=== PATIENT | female | born 1980 | race Caucasian/White ===

== ENCOUNTER 2019-05-30 16:07 | Outpatient (CLI) | payer OTHER, SELFPAY ==
[2019-05-30 16:51] LABS: HCT 42.8 % (36.0-46.0); Mean Corp. HGB Concentration 32.7 g/dL (32.0-36.0); Mean Corpuscular Hemoglobin 28.6 pg (27.0-33.0); Mean Corpuscular Volume 87.5 fL (80-95); Mean Platelet Volume 9.9 fL (8.0-11.0); Platelet Count 307 x1000/uL (130-400); RBC 4.89 m/cumm (4.00-5.20); RBC Distribution Width 12.9 % (11.7-14.6); White Blood Cell Count 8.59 k/cumm (4.4-10.8)
[2019-05-30 18:51] LABS: Ferritin 110 ng/mL (8-388); TSH (W/Ref FT4) 2.38 uIU/mL (0.36-3.74)
[2019-06-02 11:16] LABS: FSH 55.6 mIU/ml; LH 23.1 mIU/ml; Prolactin 4.4 ng/ml
== END 2019-05-30 16:27 ==
PROVIDERS: PCP Family Medicine; Visit Provider Obstetrics & Gynecology
DX: N92.0 Excessive and frequent menstruation with regular cycle
CPT/HCPCS: 36415; 85027; 82728; 83001; 83002; 84146; 84443

== ENCOUNTER 2019-07-09 01:15 | Outpatient (CLI) | payer OTHER, SELFPAY ==
--- NOTE | 2019-07-09 09:07 | DI.US_ITS ---
EXAM: US PELVIS TRANSVAGINAL CLINICAL HISTORY: Menorrhagia,n92.0 TECHNIQUE: Ultrasound performed using standard protocol. Transabdominal and transvaginal exams wer e performed. COMPARISON: PELVIS TRANSVAG from 06/22/2017 FINDINGS: The transabdominal images are limited by an empty bladder. The uterus is retroverted and measures 9 x 5.4 x 6.2 cm. No fibroids are seen. The endometrial stripe measures 16 millimeters in thickness. No focal endometrial abnormality is seen. Small bilateral cysts versus follicles are seen on both ovaries. There are no suspicious masses or evidence of torsion. There is no free fluid or hydroneph rosis. IMPRESSION: Mildly thickened endometrium.
== END 2019-07-09 01:35 ==
PROVIDERS: PCP Family Medicine; Visit Provider Obstetrics & Gynecology
DX: N92.0 Excessive and frequent menstruation with regular cycle (principal); R93.89 Abnormal findings on diagnostic imaging of other specified body structures; N85.4 Malposition of uterus
CPT/HCPCS: 76830; 76856

== ENCOUNTER 2019-07-09 08:47 | Outpatient (CLI) | payer OTHER, SELFPAY ==
[2019-08-25 17:40] LABS: Result Summary NEGATIVE; Specimen WB Whole Blood
== END 2019-07-09 09:07 ==
PROVIDERS: PCP Family Medicine; Visit Provider Obstetrics & Gynecology
DX: N92.0 Excessive and frequent menstruation with regular cycle (principal); Z80.41 Family history of malignant neoplasm of ovary
CPT/HCPCS: 36415; 81211

== ENCOUNTER 2019-07-21 13:53 | Outpatient (REF) | payer OTHER, SELFPAY | END 2019-07-21 14:13 | LOC: LBN 13:53 | PROVIDERS: PCP Family Medicine; Visit Provider Nurse Practitioner Women's Health | DX: R30.0 Dysuria (principal) | CPT/HCPCS: 87077; 87086; 87186 ==

== ENCOUNTER 2019-08-07 10:30 | Outpatient (REF) | payer OTHER, SELFPAY ==
--- NOTE | 2019-08-07 09:15 | ENDOMET_PTH ---
PATIENT: NAVEED WHITMORE LOC: [facility] U#:[id number] AGE/SX: 38/F ROOM: RE08/07/[address]: Elmer Hernandez MD : 1980 BED: DIS: 08/07/2019 SPEC #: [id number] RECD: 08/07/19 12:36 STATUS: NITA REQ #: [id number] YUDI: 08/07/19 09:[address]: Elmer Hernandez DEPT: Surgical Specimen RECD BY: Diamond Garcia ENTERED: 08/07/19 12:37 SP TYPE: Endomet OTHR DR: Nils Mathias MD Tissues: 1 - ENDOMETRIUM BX/CURRETTE Procedures: GROSS AND MICRO LEVEL 4 Comments: [id number]
== END 2019-08-07 10:50 ==
LOC: LBN 10:30
PROVIDERS: PCP Family Medicine; Visit Provider Obstetrics & Gynecology
DX: N84.0 Polyp of corpus uteri (principal); N85.01 Benign endometrial hyperplasia; N93.9 Abnormal uterine and vaginal bleeding, unspecified
CPT/HCPCS: 88305

== ENCOUNTER 2019-08-13 02:13 | Outpatient (CLI) | payer OTHER, SELFPAY ==
--- NOTE | 2019-08-13 08:26 | DI.MAMMO_ITS ---
EXAM: MAMMO SCREENING CLINICAL HISTORY: screening, Z12.39. TECHNIQUE: Full field digital CC and MLO mammographic images were obtained with 3D tomosynthesis and utilizing computer aided detection (CAD). COMPARISON: This is a baseline examination. FINDINGS: Breast Density - Category B - Scattered areas of fibroglandular density Masses/Architectural Distortion: None seen. Microcalcifications: No suspicious pleomorphic-type calcifications are seen. Skin Thickening/Nipple Retraction: None. Axilla: Unremarkable. IMPRESSION: 1. BI-RADS category 1, negative. No significant interval change with no specific features of maligna ncy noted. 2. Unless there is more urgent need, screening mammography is recommended, as per [employer] guidelines. A negative radiographic report should not delay biopsy if a dominant or clinically suspicious mass is present. Up to ten percent of cancers are not identified on mammography. A negative report may reinforce clinical impression. Adenosis and dense breasts may obscure an underlying neoplasm. False positive reports average 6 to 10%. Patient will receive a letter notifying them of these results.
== END 2019-08-13 02:33 ==
PROVIDERS: PCP Family Medicine; Visit Provider Obstetrics & Gynecology
DX: Z12.31 Encounter for screening mammogram for malignant neoplasm of breast (principal)
CPT/HCPCS: 77063; 77067